=== PATIENT | female | born 1980 | race Caucasian/White ===

== ENCOUNTER → 2023-09-12 13:34 | Outpatient (REF) | payer OTHER, SELFPAY | LOC: MRI 3T 13:34 | PROVIDERS: ATTENDING PHYSICIAN Orthopaedic Surgery Hand Surgery; FAMILY PHYSICIAN Nurse Practitioner Family | DX: S43.432A Superior glenoid labrum lesion of left shoulder, initial encounter (principal); Y93.75 Activity, martial arts | CPT/HCPCS: 23350; 73040; 73222 ==

== ENCOUNTER → 2023-09-28 13:19 | Outpatient (REF) | payer OTHER, SELFPAY | LOC: RCS 13:19 | PROVIDERS: ATTENDING PHYSICIAN Psychiatry & Neurology Psychiatry; FAMILY PHYSICIAN Nurse Practitioner Family | DX: Z79.899 Other long term (current) drug therapy (principal) | CPT/HCPCS: 93005 ==

== ENCOUNTER 2023-11-17 10:42 | Emergency (ER) | payer OTHER, SELFPAY ==
[2023-11-17 10:50] VITALS: BP 105/66
--- NOTE | 2023-11-17 11:06 | ED.GENMED ---
History of Present Illness
General
Chief Complaint: Head Injury
Time Seen by Provider: 11/17/23 10:57
Travel History
Have you had any contact with someone who has COVID-19?: No
Do you have any symptoms of coronavirus? Fever > 100 degrees, chills, cough, shortness of breath, sore throat, loss of taste or smell, muscle aches, or headache?: No
History of Present Illness
History of Present Illness:
Patient is a 43-year-old female with no medical problems here today for evaluation after she sustained a facial/ocular injury approximately 1 hour prior to arrival. Patient states she was participating in [employer] when she was kneed in the right eye
and along her nose. She admits to pain along her right periorbital region, predominantly along the medial aspect as well as along the upper nasal bridge. Patient denies LOC. No anticoagulation use. No vomiting. No numbness/tingling. No focal
weakness. No pain along her actual eye. No visual changes. No bleeding. No epistaxis. No injuries noted elsewhere.
Past History
Past History
ED Past Medical History: None
ED Past Surgical History: None
Social History
Tobacco: Non-smoker
Alcohol: None
Personal:
Living: with family
Family History
Family History: Negative Early CAD or Sudden
Review of Systems
Review of Systems
All Other Systems: ROS reviewed and negative except as documented in HPI and ROS
Phy Exam
Physical Exam
Physical Exam:
GENERAL: Alert , in no apparent distress
HEAD: There is mild tenderness noted along the medial aspect of the right periorbital region, there is also tenderness noted along the upper middle nasal bridge, there is mild swelling, no ecchymosis, normal alignment, no deformity
EYE: pupils equal and reactive, no evidence of open globe injury/ocular trauma.
NECK: Supple, no significant adenopathy.
ENT: o/p clr, mmm. No epistaxis. No septal hematoma.
CARDIAC: Regular rate and rhythm .
LUNGS: Clear breath sounds bilaterally, no acute respiratory distress, no wheezes/rales/rhonchi
ABDOMEN: Soft, without focal tenderness, no r/g, no cvat
NEUROLOGICAL: Alert and oriented, no focal neuro deficits, cranial nerves 2 through 12 intact, moving all extremities, normal sensation/motor
SKIN: Warm and dry, skin intact.
MUSCULOSKELETAL: No edema, well perfused.
PSYCH: Normal and appropriate interaction.
Course
Orders/Labs/Results
Orders:
Orders
11/17/23 11:03
CT Orbits W/o Iv Contrast Urgent
Comment:
Reason For Exam: right periorbital trauma, predominatley medial
Acetaminophen [Tylenol] 650 mg PO NOW STA
Test Result ONCE
11/17/23 11:17
, Urine Qualitative Screen [HCG, Urine Qualitative Screen] Urgent
Date Specimen was Collected: 11/17/23
Time Specimen was Collected: 11:13
Vital Signs
Initial and Last Documented VS:
Initial Vital Signs
Temp Pulse Resp BP Pulse Ox
98.4 F 53 18 105/66 97
11/17/23 10:50 11/17/23 10:50 11/17/23 10:50 11/17/23 10:50 11/17/23 10:50
Last Documented Vital Signs
Temp Pulse Resp BP Pulse Ox
98.4 F 53 18 105/66 97
11/17/23 10:50 11/17/23 10:50 11/17/23 10:50 11/17/23 10:50 11/17/23 10:50
MDM/Problems Addressed
Differential Diagnosis Includes:
Patient is a 43-year-old female with no medical problems here today for evaluation after she sustained a facial/ocular injury approximately 1 hour prior to arrival. Overall, patient appears well. She is neurologically intact. Physical examination
described above. Concern for possible orbital fracture and nasal fracture. No evidence of ocular trauma/open globe injury. No epistaxis. No septal hematoma. Will obtain CT orbits. I did discuss with the radiologist and this will include an
evaluation of the nasal bones. I do not suspect intracranial trauma/hemorrhage given lack of vomiting, lack of significant headache, normal neurological examination, lack of anticoagulation use, lack of numbness/tingling/focal weakness, and
mechanism of injury. Will continue to monitor. I did recommend a fluorescein stain of the eye to assess for corneal abrasion/trauma but patient declined.
11/17/2023 12:52: CT scan reveals an acute nondisplaced fracture of the right nasal bone. No evidence of epistaxis. No septal hematoma. Patient made aware of findings. We will discharge the patient at this time with recommendations for ice
therapy, pain control with Tylenol and ibuprofen, avoidance of nose blowing, and close follow-up with ENT. Patient voices understanding. All questions answered. Stable for discharge.
*Critical Care Note
Total Time (30-74mins, 75-104mins- exclusive of procedures): Not Applicable
ED Attending Note
-
Portions of this chart may have been created with voice recognition software.� Occasional wrong word or��sound alike� substitutions may have occurred due to the inherent limitations of voice recognition software.
Discharge Plan
Departure
Patient Disposition: Home (Routine Discharge)
Date of Disposition: 11/17/23
Time of Disposition: 12:52
Patient with high blood pressure during this ER visit?: No
Condition: Good
Covid-19: Not Applicable
Discharge Problem:
Fracture of nasal bone
Instructions: Nose Fracture ED
Prescriptions:
No Action
cetirizine 10 MG tablet
10 mg PO DAILYPRN PRN (Reason: as directed)
naproxen sodium [Aleve] 220 MG tablet
440 mg PO PRN PRN (Reason: as directed)
ibuprofen 200 MG tablet
800 mg PO PRN PRN (Reason: as directed)
vitamin B complex 1 TAB tablet
1 tab PO DAILYPRN PRN (Reason: as directed)
pseudoephedrine HCl [Sudogest] 30 MG tablet
30 mg PO PRN PRN (Reason: as directed)
Referrals:
Nikita Merlos MD [Active] - Follow up in 1 week
Parvez Foley CRNP [Family Provider] -
Activity Restrictions/Additional Instructions:
You were seen today for evaluation of nasal and eye pain.
We performed a CAT scan which reveals a broken right-sided nasal bone.
Ice the area. Take ibuprofen and Tylenol as directed as needed for pain. Avoid nose blowing. Avoid nose picking.
Follow-up with the ear, nose, and throat doctors (correction worker) within 7 days for reevaluation.
Interventions
Interventions:
*Risk Screen - Suicide Last Done: 11/17/23 10:50
*General Assessment Last Done: 11/17/23 10:50
*Neglect/Abuse Screening Last Done: 11/17/23 10:50
*ED COVID-19 Vaccine History Last Done: 11/17/23 10:50
*Nursing Disposition Last Done: 11/17/23 13:10
ED- Neurological Assessment Last Done: 11/17/23 10:55
ED-Skin Assessment Last Done: 11/17/23 10:54
Discharge Date and Time
Discharge Date/Time: 11/17/23 13:10
Print Language: TELUGU
[2023-11-17] MEDS: TYLENOL 650 MG PO (11:16)
[2023-11-17 11:36] LABS: HCG, Urine Qualitative Screen Negative
== END 2023-11-17 13:10 | disposition home or self-care (01) ==
LOC: EMR 10:42
PROVIDERS: Physician Assistant; EMERGENCY PHYSICIAN Emergency Medicine; FAMILY PHYSICIAN Nurse Practitioner Family
DX: S02.2XXA Fracture of nasal bones, initial encounter for closed fracture (principal); X58.XXXA Exposure to other specified factors, initial encounter
CPT/HCPCS: 99284; 70480; 81025

== ENCOUNTER → 2023-11-29 10:08 | Outpatient (REF) | payer OTHER, SELFPAY | LOC: HWRAD 10:08 | PROVIDERS: ATTENDING PHYSICIAN Obstetrics & Gynecology; FAMILY PHYSICIAN Nurse Practitioner Family | DX: N92.4 Excessive bleeding in the premenopausal period (principal) | CPT/HCPCS: 76830; 76856 ==

== ENCOUNTER → 2024-01-03 13:38 | Outpatient (REF) | payer OTHER, SELFPAY | LOC: RCS 13:38 | PROVIDERS: ATTENDING PHYSICIAN Nuclear Medicine Nuclear Cardiology; FAMILY PHYSICIAN Nurse Practitioner Family | DX: R06.02 Shortness of breath (principal); R94.31 Abnormal electrocardiogram [ECG] [EKG]; Z82.49 Family history of ischemic heart disease and other diseases of the circulatory system | CPT/HCPCS: 93017; 93350 ==

== ENCOUNTER → 2024-01-08 13:56 | Outpatient (REF) | payer OTHER, SELFPAY | LOC: HWRCS 13:56 | PROVIDERS: ATTENDING PHYSICIAN Nuclear Medicine Nuclear Cardiology | DX: R06.02 Shortness of breath (principal); R94.31 Abnormal electrocardiogram [ECG] [EKG]; Z82.49 Family history of ischemic heart disease and other diseases of the circulatory system | CPT/HCPCS: 93306 ==

== ENCOUNTER 2024-03-13 20:32 | Emergency (ER) | payer OTHER, SELFPAY ==
[2024-03-13 20:38] VITALS: BP 128/70
[2024-03-13 21:19] VITALS: BMI 26.4
--- NOTE | 2024-03-13 22:19 | ED.GENMED ---
History of Present Illness
<ED Anderson (Lenka) - Last Filed: 03/13/24 23:44>
General
Chief Complaint: Eye Problems
Source: patient
Exam Limitations: none
Time Seen by Provider: 03/13/24 22:03
Nursing documentation reviewed up to this point in time: agreed with
History of Present Illness
History of Present Illness:
Pt is a 43 yo female with recent diagnosis of herpes zoster on 03/10/24 who presents to the ED with concerns over left ocular involvement x 1 day. 1 week ago (, 03/06), pt began to feel hypersensitive on her left scalp, and by Sunday (03/08),
her scalp began to burn. She went to her PCP on Sunday (03/10) who diagnosed her with shingles, pt had herpes simplex as a child. She began Valtrex three times a day on Sunday (03/11) as well as a steroid pack. She has had myalgias and intermittent
fever managed without antipyretics since, Tmax 101 F. This morning she awoke with pressure to her left eye and pain with looking up. She describes the pain as a foreign body sensation. She is sensitive to bright lights, has been wearing sunglasses
indoors. She denies vision changes such as blurry or double vision. Denies erythema, pruritus, or edema of the left eye. No concerns or complaints regarding the right eye. Denies facial numbness, facial paralysis or droop, otalgia, chest pain,
dyspnea, abdominal pain.
Past History
<ED Anderson (Lenka) - Last Filed: 03/13/24 23:44>
Past History
ED Past Medical History: None
ED Past Surgical History: None
Social History
Tobacco: Non-smoker
Alcohol: None
Personal:
Living: with family
Family History
Family History: Negative Early CAD or Sudden
Phy Exam
<Jordana Nettles ([place]ka) [facility] [[email or web address]] - Last Filed: 03/13/24 23:44>
General Physical Exam
General Presentation: well appearing and no apparent distress
General age: appears stated age
General Skin: warm and dry
General Habitus: normal
General Mental: alert
General Hydration: appears well hydrated
ENT Exam
ENT Exam: EOMI, normocephalic and other
Additional ENT: tenderness to the left frontal sinus
Eye Exam
Eye Exam: PERRL, EOMI and conjunctiva normal
Eye Exam General: PERRL: bilateral and EOM intact: bilateral
Pupil Exam: Bilateral: round and reactive
Conjunctival Changes: bilateral: none
Eyelid Exam: laceration: Left (vesicular lesion to left upper eyelid)
Neurological Exam
Neurological Exam: alert, oriented x3 and speech normal
Skin Exam
Skin Exam: other (herpetic lesions to left scalp and left forehead, tracking through the left eyebrow onto the left eyelid)
Course
<ST Anderson (Lenka)CO - Last Filed: 03/13/24 23:44>
Orders/Labs/Results
Orders:
Orders
03/13/24 22:42
Visual Acuity- Treatment ONCE
Vital Signs
Initial and Last Documented VS:
Initial Vital Signs
Temp Pulse Resp BP Pulse Ox
99.0 F 54 20 128/70 98
03/13/24 20:38 03/13/24 20:38 03/13/24 20:38 03/13/24 20:38 03/13/24 20:38
Last Documented Vital Signs
Temp Pulse Resp BP Pulse Ox
99.0 F 54 20 128/70 98
03/13/24 20:38 03/13/24 20:38 03/13/24 20:38 03/13/24 20:38 03/13/24 20:38
<Janeth Mckenna MD - Last Filed: 03/13/24 23:48>
Orders/Labs/Results
Orders:
Orders
03/13/24 22:42
Visual Acuity- Treatment ONCE
Vital Signs
Initial and Last Documented VS:
Initial Vital Signs
Temp Pulse Resp BP Pulse Ox
99.0 F 54 20 128/70 98
03/13/24 20:38 03/13/24 20:38 03/13/24 20:38 03/13/24 20:38 03/13/24 20:38
Last Documented Vital Signs
Temp Pulse Resp BP Pulse Ox
99.0 F 54 20 128/70 98
03/13/24 20:38 03/13/24 20:38 03/13/24 20:38 03/13/24 20:38 03/13/24 20:38
<ED Anderson (Lenka) - Last Filed: 03/13/24 23:44>
MDM/Problems Addressed
Differential Diagnosis Includes:
Pt is a 43 yo female with recent diagnosis of herpes zoster on 03/10/24 who presents to the ED with concerns over left ocular involvement x 1 day. 1 week ago (, 03/06), pt began to feel hypersensitive on her left scalp, and by Sunday (03/08),
her scalp began to burn. She went to her PCP on Sunday (03/10) who diagnosed her with shingles, pt had herpes simplex as a child. She began Valtrex three times a day on Sunday (03/11) as well as a steroid pack. She has had myalgias and intermittent
fever managed without antipyretics since, Tmax 101 F. This morning she awoke with pressure to her left eye and pain with looking up. She describes the pain as a foreign body sensation. She is sensitive to bright lights, has been wearing sunglasses
indoors. She denies vision changes such as blurry or double vision. Denies erythema, pruritus, or edema of the left eye. No concerns or complaints regarding the right eye. Denies facial numbness, facial paralysis or droop, otalgia, chest pain,
dyspnea, abdominal pain.
DDx: zoster ophthalmicus, preseptal cellulitis, orbital cellulitis
Due to the clinical picture of herpetic lesions to the left forehead and surrounding the left eye, there exists a possible source of infection that could predispose patient to developing preseptal or orbital cellulitis. However, due to the lack of
periorbital edema and minimal erythema, in conjunction with the new onset eye pain and foreign body sensation, zoster ophthalmicus is more likely. Additionally, given the recent diagnosis of herpes zoster where treatment was initiated over 72 hours
after symptom onset, progresion of the zoster is more likely.
We will plan to fluorescein stain and examine the eye with a slit lamp. Provide acyclovir ophthalmic drops.
<ED Anderson (Lenka) - Last Filed: 03/13/24 23:44>
*Critical Care Note
Total Time (30-74mins, 75-104mins- exclusive of procedures): Not Applicable
ED Attending Note
<ED Anderson (Lenka) - Last Filed: 03/13/24 23:44>
-
Portions of this chart may have been created with voice recognition software.� Occasional wrong word or��sound alike� substitutions may have occurred due to the inherent limitations of voice recognition software.
<Janeth Mckenna MD - Last Filed: 03/13/24 23:48>
ED Attending Note
Patient seen and examined by attending physician: Yes
I performed the substantive portion of visit, reviewed & personally made and approve the management plan that is documented in note by myself or ALLISON.: Yes
ED Attending Note:
This patient is a 43-year-old female presents emergency department after developing zoster at the left scalp area over the weekend, diagnosed on Sunday and began treatment on Sunday. Today, she noted photophobia, eye irritation, and a foreign body
sensation in her left eye which worried her regarding potential eye involvement. She denies fever, visual changes, drainage, or other complaints. On exam, patient has obvious zoster rash involving left forehead and upper left eyelid. Slit-lamp
exam, fluorescein exam all unremarkable, no dendrites or other abnormalities noted. Patient's physical exam otherwise unremarkable. Patient presents to the Emergency Department with eye irritation and photophobia
Number and Complexity of Problems Addressed at the Encounter
� Chronic conditions affecting care:
� Acute Exacerbation and/or Progression of Chronic Illness: Zoster
� Differential Diagnosis includes: But not limited to eye involvement of zoster, conjunctivitis, corneal ulcer, etc.
Amount and/or Complexity of Data to be Reviewed and Analyzed
� I performed an independent evaluation of and my interpretation is:
EKG:
CT:
Xrays:
Laboratory Studies:
Other:
� Review of other/old records reveals:
� Clinical information was obtained by an independent historian:
� Prescriptions/Medications Considered but not given:
� Further testing considered but not performed:
Risk of Complications and/or Morbidity or Mortality of Patient Management
� Social determinants of health affecting care:
� Discussion with other providers (PCP, Hospitalists, Consultants, etc):
� Escalation of care including admission/observation vs risk of discharge considered:Case d/w ophtho ([facility]) via tt, pictures sent awre hx and physical, agrees pt needs close f/u and pt to call office am for an appt tomorrow.
Cornea noted to look ok, no mazariegos's sing. Start art tears qid, erytho opht ointment to rash area.
Discharge Plan
Departure
Patient Disposition: Home (Routine Discharge)
Date of Disposition: 03/13/24
Time of Disposition: 23:41
Patient with high blood pressure during this ER visit?: Yes
Condition: Good
Discharge Problem:
Herpes zoster
Instructions: Shingles, BLOOD PRESSURE
Prescriptions:
New
erythromycin 5 mg/gram (0.5 %) ointment
1 applic ophthalmic (eye) BID Qty: 3.5 0RF
No Action
cetirizine 10 MG tablet
10 mg PO DAILYPRN PRN (Reason: as directed)
naproxen sodium [Aleve] 220 MG tablet
440 mg PO PRN PRN (Reason: as directed)
ibuprofen 200 MG tablet
800 mg PO PRN PRN (Reason: as directed)
vitamin B complex 1 TAB tablet
1 tab PO DAILYPRN PRN (Reason: as directed)
pseudoephedrine HCl [Sudogest] 30 MG tablet
30 mg PO PRN PRN (Reason: as directed)
Referrals:
Debra Pacheco MD [Active] - 03/14/24
Parvez Foley CRNP [Family Provider] -
Activity Restrictions/Additional Instructions:
PLEASE APPLY LUBRICATING DROPS/ARTIFICIAL TEARS 4 TIMES A DAY TO THE LEFT EYE. WE ARE PRESCRIBING ERYTHROMYCIN OINTMENT THAT YOU SHOULD APPLY TO THE RASH AREA TO AVOID INFECTION. YOU SHOULD CONTACT THE EYE DOCTOR THIS MORNING IN ORDER TO BE SEEN
LATER TODAY� THIS IS VERY IMPORTANT. IF YOU DEVELOP NEW OR WORSENING SYMPTOMS, PLEASE RETURN TO THE ER IMMEDIATELY
Interventions
Interventions:
*Risk Screen - Suicide Last Done: 03/13/24 20:38
*General Assessment Last Done: 03/13/24 20:38
*Neglect/Abuse Screening Last Done: 03/13/24 20:38
ED- Fall Risk Assessment Last Done: 03/13/24 20:38
*ED COVID-19 Vaccine History Last Done: 03/13/24 20:38
Discharge Date and Time
Print Language: TURKISH
== END 2024-03-14 00:02 | disposition home or self-care (01) ==
LOC: EMR 20:32
PROVIDERS: EMERGENCY PHYSICIAN Emergency Medicine; FAMILY PHYSICIAN Nurse Practitioner Family
DX: B02.9 Zoster without complications (principal); R03.0 Elevated blood-pressure reading, without diagnosis of hypertension
CPT/HCPCS: 99282

== ENCOUNTER → 2024-06-03 17:01 | Outpatient (REF) | payer OTHER, SELFPAY | LOC: RAD 17:01 | PROVIDERS: ATTENDING PHYSICIAN Family Medicine | DX: R10.31 Right lower quadrant pain (principal) | CPT/HCPCS: 73502 ==

== ENCOUNTER → 2024-08-22 13:30 | Outpatient (REF) | payer OTHER, SELFPAY | LOC: MRI 3T 13:30 | PROVIDERS: ATTENDING PHYSICIAN Physical Medicine & Rehabilitation | DX: S73.101A Unspecified sprain of right hip, initial encounter (principal) | CPT/HCPCS: 27095; 73525; 73722 ==